=== PATIENT | male | born 1970 | race Caucasian/White ===

== ENCOUNTER → 2022-10-04 10:11 | Outpatient (CLI) | payer OTHER, SELFPAY ==
--- NOTE | 2022-10-04 10:13 | DI.RAD.S_ITS ---
PROCEDURE: XR HAND RT MIN 3V INDICATIONS: Right thumb injury TECHNIQUE: 3 views of the hand(s) acquired. COMPARISON: None. FINDINGS: Bones: Apparent chip fractures can be seen involving the distal aspect of the 1st metacarpal. No additional fractures are detected. Soft tissues: No suspicious soft tissue calcifications. IMPRESSION: Apparent chip fracture fragments can be seen involving the distal 1st metacarpal. Please correlate with focal tenderness. If it would be helpful for clinical management decision making in this patient with this given history, please consider a dedicated CT for further evaluation. Dictated by: Samy Reed M.D. on 10/04/2022 at 9:42 Approved by: Samy Reed M.D. on 10/04/2022 at 9:43
== END ==
PROVIDERS: Referring Provider Registered Nurse; Visit Provider Registered Nurse
DX: M79.641 Pain in right hand (principal)
CPT/HCPCS: 73130